=== PATIENT | male | born 2000 | race Caucasian/White ===

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

== ENCOUNTER 2025-01-22 13:43 | Emergency (ER) | payer BC, OTHER ==
[2025-01-22 15:11] VITALS: BP 127/78; PULSE 88
== END 2025-01-22 15:03 | disposition home or self-care (01) ==
LOC: MW.ED 13:43
DX: J02.9 Acute pharyngitis, unspecified (principal); Z79.899 Other long term (current) drug therapy
CPT/HCPCS: 36415; 86308; 87428; 87651; 99283; A9270; J8540